=== PATIENT | male | born 1995 | race Caucasian/White ===

== ENCOUNTER 2017-12-25 12:55 | Emergency (ER) | payer OTHER ==
[2017-12-25] MEDS ORDERED: Ketorolac INJ* 30 MG/ML 1 ML VIAL IV PUSH ONE (13:30)
[2017-12-25] MEDS ORDERED: Metoclopramide IV* 5 MG/ML 2 ML VIAL IV ONE (13:30)
[2017-12-25] MEDS ORDERED: diPHENhydraMINE IV* 50 MG/ML 1 ml VIAL (BENADRYL) IV ONE (13:30)
--- NOTE | 2017-12-25 13:59 | RAD ---
HISTORY: headaches x 1mo COMPARISONS: None TECHNIQUE: Multiple contiguous axial CT scans were obtained of the head without intravenous contrast. FINDINGS: HEMORRHAGE/INFARCT: There is no hemorrhage or acute infarct. MASSES/SHIFT: There is no mass or shift. EXTRA-AXIAL SPACES: There are no extra-axial fluid collections. SULCI AND VENTRICLES: The sulci and ventricles are normal in size and position for the patient's stated age. CEREBRUM: There are no focal parenchymal abnormalities. BRAINSTEM: There are no focal parenchymal abnormalities. CEREBELLUM: There are no focal parenchymal abnormalities. VESSELS: The vessels are grossly normal. PARANASAL SINUSES: The paranasal sinuses are clear. ORBITS: The orbits are unremarkable. BONES AND SOFT TISSUE: No bone or soft tissue abnormalities are noted. OTHER: None IMPRESSION: NO ACUTE INTRACRANIAL PATHOLOGY.
[2017-12-25 15:21] VITALS: BP 123/65
--- NOTE | 2017-12-25 15:24 | ED ---
Headache - HPI Summary HPI Summary: Patient is a 22 y/o M w/ c/o intermittent RUELAS onsetting a month ago. He states that he thought Sx were from stress but became concerned that it was something more serious. HAs are located at his temples. Patient went to urgent care and was sent here. Patient denies Hx of tick bites; he lives [place] outside of [facility]. He reports some neck pain but denies changes in vision. Patient denies recent injuries and no new medications. He states he has not been using ibuprofen to treat. Patient also notes a small bump at left side of scalp. On triage, pain is rated 5/10. He notes palpation causes pain at head bump, does not note anything that alleviates Sx. Home medications and allergies reviewed. - History Of Current Complaint Chief Complaint: EDHeadache Stated Complaint: HEADACHES Time Seen by Provider: 12/25/17 14:47 Hx Obtained From: Patient Onset/Duration: Started weeks ago - onset a month ago, Still Present Currently Pain Is: Moderate - 5/10 on triage Timing: Intermittent, Lasting: Location of Headache: Temporal Aggravating Factor: Other - palpations cause pain at scapular head bump Allevating Factors: Nothing Associated Signs And Symptoms: Neck Pain, Other (Noted In Comments) - NEGATIVE: vision changes POSITIVE: small bump at left side of scalp - Allergies/Home Medications Allergies/Adverse Reactions: Allergies Allergy/AdvReac Type Severity Reaction Status Date / Time No Known Allergies Allergy Verified 05/31/15 18:57 PMH/Surg Hx/FS Hx/Imm Hx Sensory History: Denies: Hx Legally Blind, Hx Deafness Opthamlomology History: Denies: Hx Legally Blind EENT History: Denies: Hx Deafness Infectious Disease History: No Infectious Disease History: Denies: Traveled Outside the [place] in Last 30 Days - Family History Known Family History: Negative: Blood Disorder - Social History Alcohol Use: None Substance Use Type: Reports: None Smoking Status (MU): Never Smoked Tobacco Review of Systems Positive: Other - POSITIVE: neck pain Positive: Other - bump at left side of scalp Neurological: Other - NEGATIVE: vision changes Positive: Headache All Other Systems Reviewed And Are Negative: Yes Physical Exam - Summary Physical Exam Summary: Appearance: Well appearing, no pain distress Skin: warm, dry, reflects adequate perfusion Head/face: .5 cm mobile nodule at left side of scalp Eyes: EOMI, ALEX ENT: normal Neck: supple, non-tender Respiratory: CTA, breath sounds present Cardiovascular: RRR, pulses symmetrical Abdomen: non-tender, soft Bowel Sounds: present Musculoskeletal: normal, strength/ROM intact Neuro: normal, sensory motor intact, A&Ox3; GCS 15 Triage Information Reviewed: Yes Vital Signs On Initial Exam: Initial Vitals Temp Pulse Resp BP Pulse Ox 97.9 F 71 20 129/86 98 12/25/17 13:09 12/25/17 13:09 12/25/17 13:09 12/25/17 13:09 12/25/17 13:09 Vital Signs Reviewed: Yes Diagnostics - Vital Signs Vital Signs Temp Pulse Resp BP Pulse Ox 12/25/17 15:20 97.5 F 58 18 123/65 100 12/25/17 14:43 98.0 F 70 16 138/81 97 12/25/17 13:09 97.9 F 71 20 129/86 98 - Laboratory Lab Statement: Any lab studies that have been ordered have been reviewed, and results considered in the medical decision making process. - CT brain CT CT Interpretation: No Acute Changes CT Interpretation Completed By: ED Physician - no acute intracranial pathology, this report was reviewed by ED physician. Re-Evaluation - Re-Evaluation First Eval Re-Evaluation Time: 15:25 Comment: Discussed CT scan results and plan to discharge patient. He is agreeable with this plan. He will follow up with PCP. Headache Course/Dx - Course Course Of Treatment: Patient with recurring mild temporal headache that is now largely gone. He was referred from urgent care. A head CT is negative and was performed as he has had symptoms over a long course. His symptoms are not thunderclap and are not associated with other neurologic signs. He was offered Lyme disease testing however he would like to have this done with his primary care appointment next week. He is discharged in good condition with no symptoms active. - Diagnoses Provider Diagnoses: Temporal headache Discharge - Sign-Out/Discharge Documenting (check all that apply): Patient Departure - discharge - Discharge Plan Condition: Improved Disposition: HOME Prescriptions: Promethazine TAB* [Phenergan Tab*] 25 mg PO Q6H PRN #20 tab PRN Reason: headache/nausea Patient Education Materials: Acute Headache (ED) Referrals: [facility] [place] [[facility], APPLICATION, OTHER] - Additional Instructions: Stay well-hydrated. Have your doctor tested for Lyme disease when they do other testing. Return with visual changes, severe headaches, repetitive vomiting, new symptoms or other concerns. Follow up with the [facility] as well. - Billing Disposition and Condition Condition: IMPROVED Disposition: Home - Attestation Statements Document Initiated by Vic: Yes Documenting Scribe: Alli Sahni Provider For Whom Scribe is Documenting (Include Credential): Dr Rivas Scribe Attestation: I, Alli Sahni, scribed for Dr Rivas on 12/25/17 at 1742. Scribe Documentation Reviewed: Yes Provider Attestation: The documentation as recorded by the Alli majano accurately reflects the service I personally performed and the decisions made by me, Dr Rivas
--- NOTE | 2017-12-28 19:46 | ED ---
Progress - Progress Note Progress Note: Pt called requesting now that Lyme disease blood work be sent, after visit in ED 12/25/17. Pt was initially going to go home, so he advised Dr. Rivas not to order the Lyme testing. Now pt states he is not going home so requests bloodwork to be done. I spoke with Taran in the lab at 1854pm, who states that there is no serum in the lab. Left message for pt to call on his voicemail. Will advise pt that he may go to urgent care as a patient, or he may go to [facility] to get labs done. Dawn Lund 12/[id number]. Re-Evaluation - Re-Evaluation First Eval Re-Evaluation Time: 15:25 Comment: Discussed CT scan results and plan to discharge patient. He is agreeable with this plan. He will follow up with PCP. Course/Dx - Course Course Of Treatment: Patient with recurring mild temporal headache that is now largely gone. He was referred from urgent care. A head CT is negative and was performed as he has had symptoms over a long course. His symptoms are not thunderclap and are not associated with other neurologic signs. He was offered Lyme disease testing however he would like to have this done with his primary care appointment next week. He is discharged in good condition with no symptoms active. - Diagnoses Provider Diagnoses: Temporal headache Discharge - Sign-Out/Discharge Documenting (check all that apply): Post-Discharge Follow Up - pt requesting labs, no serum, may go to urgent care as pt or to [facility] - Discharge Plan Condition: Improved Disposition: HOME Prescriptions: Promethazine TAB* [Phenergan Tab*] 25 mg PO Q6H PRN #20 tab PRN Reason: headache/nausea Patient Education Materials: Acute Headache (ED) Referrals: [facility] [[facility], APPLICATION, OTHER] - Additional Instructions: Stay well-hydrated. Have your doctor tested for Lyme disease when they do other testing. Return with visual changes, severe headaches, repetitive vomiting, new symptoms or other concerns. Follow up with the Health [facility] as well. - Billing Disposition and Condition Condition: IMPROVED Disposition: Home
== END 2017-12-25 15:20 | disposition home or self-care (01) ==
LOC: ED 12:55
DX: R51 Headache (principal)
CPT/HCPCS: 70450; 96374; 96375; 99283